=== PATIENT | female | born 1970 | race Caucasian/White ===

== ENCOUNTER 2018-02-10 15:38 | Outpatient (CLI) | payer OTHER ==
--- NOTE | 2018-02-11 13:26 | Mammography Report ---
DIGITAL SCREENING MAMMOGRAM: 02/10/2018 CLINICAL INDICATION: A 47-year-old with history of late childbearing for screening. COMPARISON: 03/2015, 01/2014. TECHNIQUE: Routine CC and MLO projections as well as bilateral implant displaced views were obtained of the breasts. FINDINGS: The breasts demonstrate heterogeneously dense fibroglandular parenchyma bilaterally. Coarse, typically benign calcifications are present. Bilateral subpectoral silicone implants are stable. No suspicious masses, clustered microcalcifications, or regions of architectural distortion are identified. IMPRESSION: BENIGN FINDINGS. RECOMMENDATION: Routine annual screening unless otherwise clinically indicated. BI-RADS CATEGORY 2 - BENIGN FINDINGS. STANDARD QUALIFYING STATEMENTS: 1. This examination was reviewed with the aid of Computer-Aided Detection (CAD). 2. A negative or benign imaging report should not delay biopsy if clinically suspicious findings are present. Consider surgical consultation if warranted. More than 5% of cancers are not identified by imaging. 3. Dense breasts may obscure an underlying neoplasm. TD: 02/11/2018 13:18
== END 2018-02-10 15:39 | disposition home or self-care (01) ==
LOC: DI 15:38
PROVIDERS: ATTEND Physician Assistant Medical
DX: Z12.31 Encounter for screening mammogram for malignant neoplasm of breast (principal)
CPT/HCPCS: 77067

== ENCOUNTER 2018-04-07 08:00 | Outpatient (CLI) | payer OTHER ==
[2018-04-07 17:53] LABS: BILIRUBIN,URINE NEGATIVE (NEGATIVE); GLUCOSE, URINE (UA) NEGATIVE (NEGATIVE); KETONES,URINE (UA) TRACE mg/dL (NEGATIVE); LEUKOCYTE ESTERASE, URINE NEGATIVE (NEGATIVE); NITRITE,URINE NEGATIVE (NEGATIVE); OCCULT BLOOD,URINE NEGATIVE (NEGATIVE); PROTEIN,URINE NEGATIVE (NEGATIVE); UROBILINOGEN,URINE 0.2 (NORMAL) E.U./dL (NORMAL)
[2018-04-07 17:54] LABS: CLARITY,URINE CLEAR (CLEAR)
[2018-04-07 17:55] LABS: BASOPHILS % (AUTO) 0.5 %; EOSINOPHILS # (AUTO) 0.1 10^3/uL (0.0-0.7); EOSINOPHILS % (AUTO) 1.1 %; HGB - HEMOGLOBIN 14.5 g/dL (12.0-16.0); LYMPHOCYTES # (AUTO) 1.8 10^3/uL (1.5-3.5); LYMPHOCYTES % (AUTO) 26.9 %; MEAN CORPUSCULAR HEMOGLOBIN 30.8 pg (27.0-31.0); MEAN CORPUSCULAR HGB CONC 33.2 g/dL (32.0-36.0); MEAN CORPUSCULAR VOLUME 92.5 fL (81.0-99.0); MONOCYTES # (AUTO) 0.3 10^3/uL (0.0-1.0); MONOCYTES % (AUTO) 3.8 %; NEUTROPHILS # (AUTO) 4.6 10^3/uL (1.5-6.6); NEUTROPHILS % (AUTO) 67.7 %; PLT - PLATELET COUNT 262 10^3/uL (130-450); RED CELL DISTRIBUTION WIDTH 12.2 % (12.0-15.0); WHITE BLOOD COUNT 6.7 x10^3/uL (4.8-10.8)
[2018-04-07 18:07] LABS: ALBUMIN 4.6 g/dL (3.2-5.5); ALBUMIN/GLOBULIN RATIO 1.5 (1.0-2.2); ALKALINE PHOSPHATASE 67 IU/L (42-121); ALT ALANINE AMINOTRANSFERASE 16 IU/L (10-60); AST ASPARTATE AMINOTRANSFERASE 18 IU/L (10-42); BILIRUBIN,TOTAL 0.6 mg/dL (0.2-1.0); BUN - BLOOD UREA NITROGEN 10 mg/dL (6-20); CALCIUM 9.2 mg/dL (8.5-10.3); CARBON DIOXIDE - CO2 25 mmol/L (21-32); CHLORIDE 100 mmol/L (101-111); CREATININE 0.7 mg/dL (0.4-1.0); GFR - MDRD 90 (>89); GLUCOSE 108 mg/dL (70-100); HCG,QUALITATIVE BLOOD NEGATIVE; SODIUM 134 mmol/L (135-145); TOTAL PROTEIN 7.7 g/dL (6.7-8.2)
[2018-04-07 18:34] LABS: CRP - C-REACTIVE PROTEIN < 1.0 mg/dL (0-1.0)
== END 2018-04-07 08:01 ==
LOC: LAB.R 08:00
PROVIDERS: ATTEND Physician Assistant Medical
DX: R10.32 Left lower quadrant pain (principal)
CPT/HCPCS: 80053; 81001; 81003; 84703; 85025; 85651; 86140; 87086

== ENCOUNTER 2020-08-02 13:00 | Outpatient (CLI) | payer BC ==
--- NOTE | 2020-08-04 11:45 | Mammography Report ---
BILATERAL DIGITAL SCREENING MAMMOGRAM 3D/2D WITH AUGMENTATION: 08/02/2020 CLINICAL: Routine screening. Comparison is made to exams dated: 02/10/2018 mammogram, 03/28/2015 mammogram, and 02/18/2014 mammogram - [facility]. The tissue of both breasts is heterogeneously dense. This may lower the sensitivity of mammography. There is a 0.6 cm oval asymmetry with an indistinct margin in the left breast anterior depth inferior region seen on the mediolateral oblique view only 1.6 cm from the nipple. No other significant masses, calcifications, or other findings are seen in either breast. IMPRESSION: INCOMPLETE: NEEDS ADDITIONAL IMAGING EVALUATION The 0.6 cm oval asymmetry in the left breast is indeterminate. Additional views with possible ultras ound are recommended. This exam was interpreted at Station ID: [id number]. NOTE: For mammograms, a report in lay terms will be sent to the patient. Approximately 15% of breast malignancies will not be visualized mammographically. In the management of a palpable breast mass, a negative mammogram must not discourage biopsy of a clinically suspicious lesion. Electronically Signed By: Darshan Marinelli M.D., jr/halina:08/03/2020 13:30:16 ACR BI-RADS Category 0: Incomplete 3340F PARENCHYMAL PATTERN: (D) - The breast(s) demonstrate(s) heterogeneously dense fibroglandular sapna gary. BI-RADS CATEGORY: (0) - 0 Mammo and [place] [id number] Immediate follow-up LATERALITY: (B)
== END 2020-08-02 13:01 | disposition home or self-care (01) ==
LOC: DI.N 13:00
DX: Z12.31 Encounter for screening mammogram for malignant neoplasm of breast (principal); R92.8 Other abnormal and inconclusive findings on diagnostic imaging of breast
CPT/HCPCS: 77063; 77067

== ENCOUNTER 2020-09-13 10:35 | Outpatient (CLI) | payer BC ==
--- NOTE | 2020-09-14 11:45 | Ultrasound Report ---
LIMITED ULTRASOUND OF LEFT BREAST: 09/13/2020 CLINICAL: Patient returns today to evaluate an asymmetry in left breast. Comparison is made to exams dated: 09/13/2020 mammogram, 08/02/2020 mammogram, 02/10/2018 mammogram, 03/28/2015 mammogram, and 02/18/2014 mammogram - [facility]. Real-time ultrasound of the left breast 1-5 o'clock region was performed. Powers scale images of the real-time examination were reviewed. No significant abnormalities were seen sonographically in the left breast. Specifically, no finding to correspond to the patient's screening mammographic abnormality. IMPRESSION: PROBABLY BENIGN There is no sonographic correlate to the patient's screening mammography abnormality and no evidence of malignancy. A follow-up left mammogram in 6 months is recommended to demonstrate stability. Findings and recommendations were conveyed to the patient at time of exam. This exam was interpreted at Station ID: [id number]. Electronically Signed By: Suzy jacques/:09/13/2020 12:12:08 Ultrasound BI-RADS: 3 Probably benign BI-RADS CATEGORY: (3) - 3 Mammogram [id number] 6 month follow-up LATERALITY: (L)
--- NOTE | 2020-09-14 11:45 | Mammography Report ---
UNILATERAL LEFT DIGITAL DIAGNOSTIC MAMMOGRAM 3D/2D: 09/13/2020 CLINICAL: Patient returns today to evaluate a focal asymmetry in the left breast. Comparison is made to exams dated: 08/02/2020 mammogram, 02/10/2018 mammogram, 03/28/2015 mammogram, an d 02/18/2014 mammogram - . The tissue of left breast is heterogeneously d ense. This may lower the sensitivity of mammography. There is an oval low density asymmetry with a circumscribed margin in the left breast anterior depth central to the nipple seen on the mediolateral oblique view only. This is seen in additional views a nd localizes slightly lateral to the nipple. No other significant masses or calcifications are seen in the breast. IMPRESSION: INCOMPLETE: NEEDS ADDITIONAL IMAGING EVALUATION The oval low density asymmetry in the left breast is indeterminate. An ultrasound is recommended. This was performed immediately following this exam. This exam was interpreted at Station ID: [id number]. NOTE: For mammograms, a report in lay terms will be sent to the patient. Approximately 15% of breast malignancies will not be visualized mammographically. In the management of a palpable breast mass, a negative mammogram must not discourage biopsy of a clinically suspicious lesion. Electronically Signed By: Suzy jacques/:09/13/2020 11:40:32 ACR BI-RADS Category 0: Incomplete 3340F PARENCHYMAL PATTERN: (D) - The breast(s) demonstrate(s) heterogeneously dense fibroglandular sapna gary. BI-RADS CATEGORY: (0) - 0 Ultrasound [id number] Immediate follow-up LATERALITY: (B)
== END 2020-09-13 10:36 | disposition home or self-care (01) ==
LOC: DI 10:35
PROVIDERS: ATTEND Physician Assistant
DX: R92.8 Other abnormal and inconclusive findings on diagnostic imaging of breast (principal); N64.89 Other specified disorders of breast

== ENCOUNTER 2021-08-30 12:44 | Outpatient (CLI) | payer BC ==
--- NOTE | 2021-08-31 11:30 | Mammography Report ---
BILATERAL DIGITAL DIAGNOSTIC MAMMOGRAM 3D/2D: 08/30/2021 CLINICAL: Patient returns for a 6 month follow up of the left breast, due for bilateral exam. Comparison is made to exams dated: 09/13/2020 ultrasound, 09/13/2020 mammogram, 08/02/2020 mammogram , 02/10/2018 mammogram, 03/28/2015 mammogram, and 02/18/2014 mammogram - [facility]. T he tissue of both breasts is heterogeneously dense. This may lower the sensitivity of mammography. The previous oval low density asymmetry in the left breast anterior depth central to the nipple seen on the mediolateral oblique view only is no longer seen. No other significant masses, calcifications, or other findings are seen in either breast. Bilateral implants are intact. IMPRESSION: BENIGN Resolution of previously seen left breast screening mammography abnormality. This was probably overla pping glandular tissue, and there had been no sonographic correlate. There is no mammographic evidence of malignancy. A 1 year screening mammogram is recommended. Findings and recommendations were conveyed to the patient at time of exam. This exam was interpreted at Station ID: [id number]. NOTE: For mammograms, a report in lay terms will be sent to the patient. Approximately 15% of breast malignancies will not be visualized mammographically. In the management of a palpable breast mass, a negative mammogram must not discourage biopsy of a clinically suspicious lesion. Electronically Signed By: Suzy jacques/:08/30/2021 13:40:20 ACR BI-RADS Category 2: Benign Finding(s) 3342F PARENCHYMAL PATTERN: (D) - The breast(s) demonstrate(s) heterogeneously dense fibroglandular parsyeda gary. BI-RADS CATEGORY: (2) - 2 RECOMMENDATION: (ANNUAL) - Recommend routine annual screening mammography. [id number] 1 year screening LATERALITY: (B)
== END 2021-08-30 12:45 | disposition home or self-care (01) ==
LOC: DI 12:44
PROVIDERS: ATTEND Nurse Practitioner Family
DX: R92.8 Other abnormal and inconclusive findings on diagnostic imaging of breast (principal)

== ENCOUNTER 2021-11-13 11:26 | Outpatient (CLI) | payer BC ==
--- NOTE | 2021-11-13 12:24 | XRAY Report ---
PROCEDURE: Chest 2 View X-Ray INDICATIONS: POST COVID-19 INFECTION TECHNIQUE: 2 view(s) of the chest. COMPARISON: None. FINDINGS: Surgical changes and devices: None. Lungs and pleura: No pleural effusions or pneumothorax. Lungs are clear. Mediastinum: Mediastinal contours are normal. Heart size is normal. Bones and chest wall: No suspicious bony abnormalities. Soft tissues appear unremarkable. IMPRESSION: No acute cardiopulmonary process demonstrated radiographically. Reviewed by: Darshan Marinelli MD on 11/13/2021 12:22 PM PST Approved by: Darshan Marinelli MD on 11/13/2021 12:22 PM PST Station ID: [id number]
== END 2021-11-13 11:27 | disposition home or self-care (01) ==
LOC: DI.N 11:26
PROVIDERS: ATTEND Physician Assistant
DX: U09.9 Post COVID-19 condition, unspecified (principal)

== ENCOUNTER 2022-02-15 16:02 | Outpatient (CLI) | payer BC ==
--- NOTE | 2022-02-15 18:12 | Ultrasound Report ---
PROCEDURE: Pelvic w/Transvaginal INDICATIONS: HIST OF OVARIAN CYST TECHNIQUE: Real-time scanning was performed of the pelvic organs, with image documentation. Additional endovagi nal scanning was necessary due to incomplete visualization of the adnexal and endometrial structures by transabdominal scanning. COMPARISON: 06/13/14 FINDINGS: Limited scanning through the kidneys shows no hydronephrosis. No pathologic free abdominal or pelvic fluid. Uterus: Uterus is normal in size at 5.3 x 5.1 x 6.7 cm. The endometrium measures 9 mm in combined t hickness. The uterus demonstrates a heterogeneous appearance, with a 7 mm right anterior intramural fibroid noted. Nabothian cysts are incidentally noted. Ovaries: The right ovary measures 3.5 x 1.4 x 1.9 cm, with a calculated volume of 4.7 cc and the lef t ovary measures 3.7 x 2.4 x 2.5 cm, with a calculated volume of 11.5 cc. No significant ovarian abn ormalities are seen, although there is a 2 cm left ovarian cyst seen.. There are less than 12 follic les seen on each side. No adnexal masses are seen. Other: No free pelvic fluid. IMPRESSION: A 2 cm left ovarian cyst can be seen, which is considered to be within physiologic limit s. Reviewed by: Derick Henson MD on 02/15/2022 5:11 PM TYRON Approved by: Derick Henson MD on 02/15/2022 5:11 PM T[place]ON Station ID: [id number]
== END 2022-02-15 16:03 | disposition home or self-care (01) ==
LOC: DI 16:02
PROVIDERS: ATTEND Physician Assistant Medical
DX: N83.202 Unspecified ovarian cyst, left side (principal)

== ENCOUNTER 2022-10-11 14:32 | Outpatient (CLI) | payer OTHER, BC ==
--- NOTE | 2022-10-11 15:07 | SLEEP CARE CONSULTATION ---
Information from patient questionnaire entered by bAigail Hinojosa. I have reviewed and concur with the information entered by Abigail Hinojosa. This document represents the service I personally performed and the decisions made by me, Ramona Bullock ARNP. History of Present Illness Service Date and Time: 10/11/2022 1432 Reason for Visit: New patient Chief Complaint: reports: Unrefreshed sleep, Snoring, Excessive daytime sleepiness, Observed pauses in breathing, Fatigue, Frequent awakenings at night Date of Onset: 10+YRS Usual bedtime: 10PM -12AM Time it takes to fall asleep: QUICKLY Snores at night: Yes Observed to quit breathing while asleep: Yes Sleeps alone due to snoring: Yes (sometimes) Number of times waking at night: 2-4 Reasons for waking at night: reports: Snoring (rare occasion; tells her she wakes herself with snoring but she does not remember), Other (UNKNOWN REASONS). denies: Choking, Gasping for air Toss, Turn, or Twitch while sleeping: No Recalls having dreams: Yes Usually gets out of bed at: 7AM Feels refreshed in the morning: No Morning headache: Yes (1 time a wk; RESOLVES LATE AFTERNOON EVENING ) Sleepy or fatigued during the day: Yes Ever fallen asleep while driving: No Takes day naps: No Dreams during day naps: No Prior sleep studies: Yes Year and Where: [employer] Additional HPI information: I had the pleasure of seeing RAYMON SALDANA today regarding the possibility of her having a sleep disorder. Her current complaints are excessive daytime sleepiness, fatigue frequent night awakenings, observed pauses in breathing, snoring and unrefreshed sleep. She states after her first child was born 18 years ago she started snoring. She states her tells her that she is holding her breath and waking herself up multiple times a night. She is having times that she will wake up and not be able to fall back to sleep. She is waking up tired and is tired all the time during the day. She states she had a sleep study 10 years ago but was not diagnosed with sleep apnea. She saw a specialist who recommended a surgery but she did not want to do it at that time. She states the snoring is worse and she is tired all the time. She is currently taking Trazadone to help her relax and go to sleep but she does not feel it is working. - Parasomnia Symptoms Ever been unable to move upon waking from sleep: No Walks in sleep: No Talks in sleep: No Ever acted out dreams in sleep: No Ever felt weak in the knees when startled or emotional: No Bothered by creepy, crawly, restless sensations in legs: No Problems with memory or concentration: Yes (hard to stay focused when really tired) Subjective Initial [place] Sleepiness Scale score: 13 (10/11/22) Past Medical History Past Medical History: reports: Claustrophobia Social History The patient's occupation is a [employer] Patient is and lives in [place]. Have you smoked in the past 12 months: No Alcohol use: Yes Alcohol amount and frequency: ONE OR LESS A WEEK Caffeine use: Yes Caffeine amount and frequency: EVERYDAY Family History Family history of sleep disordered breathing: Yes Family Hx Sleep Apnea: Mother: Snoring, Sleep apnea - Untreated, Father: Snoring, Sleep apnea - Untreated Allergies and Home Medications Known drug allergies: No Drug allergies reviewed: Yes (NKDA) Home medication list reviewed: Yes Allergy and home medication list: Medications: Trazadone, prn sleep OTC Melatonin Review of Systems Weight gain over past 5 years: 5 Weight loss over past 5 years: 5 Cardiovascular: denies: high blood pressure Respiratory: reports: shortness of breath Gastrointestinal: denies: heartburn Neurological: reports: headaches Psychiatric: reports: anxiety, claustrophobia. denies: depression Ear/Nose/Throat: reports: wisdom teeth removed. denies: tonsillectomy Endocrine: reports: sluggishness Physical Exam Vital signs obtained and entered by: ABIGAIL Escobar MA Blood Pressure: 98/58 (LEFT ARM) Cuff size: regular Heart Rate: 89 O2 Saturation: 97 Height: 5 ft 6 in Weight: 136 lb Body Mass Index: 21.9 BMI Classification: Normal Neck circumference: 12.5 Mouth and throat: narrow oropharynx Soft palate: long Hard palate: normal Uvula: normal Uvula visualization: 25% Mallampati Class III Tongue: enlarged in size with teeth castro on lateral edges Tonsils: small Neck: normal w/o lymphadenopathy or thyromegaly Heart: regular rate and rhythm Impression and Plan 1. Suspected Obstructive Sleep Apnea-Hypopnea Syndrome, as suggested by a history of loud and irregular snoring, observed cessation of breath while asleep, morning headache, frequent awakening during the night, unrefreshed sleep, cognitive impairment, and excessive daytime sleepiness. Narrow oropharynx and obesity are common predisposing factors for obstructive sleep apnea-hypopnea syndrome. I recommend proceeding to polysomnography to confirm the diagnosis and to assess severity. If the patient has significant sleep disordered breathing, a manual CPAP titration study will also be performed to find the optimal treatment pressure. I informed the patient of what the sleep studies involve and after some discussion, obtained agreement to proceed. The pathophysiology of obstructive sleep apnea-hypopnea syndrome was discussed with the patient and health risks of cardiovascular and cerebrovascular disease if not treated. Risks of drowsy driving discussed in detail and patient advised to avoid long distance driving and to snout puller at the first sign of drowsiness. Patient agreed to plan. * Schedule polysomnography * Avoid long distance driving or driving when feeling sleepy. * Avoid alcohol, sedative and muscle relaxant around bedtime. * Review instructions provided by trained office staff on how to prepare for the sleep study. * Return for follow-up after sleep study completed. Visit Type: In Office Time Spent with Patient (minutes): 24 Provider Statement: I spent 100% of the Face to Face Visit with the patient with greater than 50% spent counseling the patient and coordination of care.
[2022-10-11 15:15] VITALS: BP 98/58
== END 2022-10-11 14:33 | disposition home or self-care (01) ==
LOC: SC 14:32
PROVIDERS: ATTEND Nurse Practitioner Family
DX: G47.10 Hypersomnia, unspecified (principal); R53.83 Other fatigue; G47.8 Other sleep disorders; R51.9 Headache, unspecified; R06.83 Snoring; R06.81 Apnea, not elsewhere classified
CPT/HCPCS: 99202; 99212

== ENCOUNTER 2022-11-03 20:01 | Emergency (ER) | payer BC, OTHER ==
[2022-11-03] MEDS ORDERED: lidocaine 1% 20 ML MDV SUBQ STA (20:51)
[2022-11-03] MEDS ORDERED: TETANUS/DIPHTHERIA/PERTUSSIS 0.5 ML SYRINGE IM ONE (20:52)
[2022-11-03] MEDS ORDERED: BACITRACIN ZINC OINT 1 PACKET TOP STA (21:28)
--- NOTE | 2022-11-03 21:34 | ED Physician Documentation ---
PD HPI HEENT - Stated complaint Stated Complaint: FALL/FACE LAC - Chief complaint Chief Complaint: Heent - History obtained from History obtained from: Patient - Additional information Additional information: The patient comes to the emergency department chief complaint of facial injury after tripping and falling in the driveway this evening. The patient had been drinking little bit of alcohol [employer] and when she tripped and fell, was able to catch herself somewhat with her hands but mostly hit her face. She states she was not rendered unconscious and immediately got up off the ground. She was not injured in any other way. She states she has some abrasions and cuts on her cheek and her lip and that is why she is here. She is not sure when her last tetanus shot was, but thinks it's been at least 10 years. No other injuries or complaints. PD PAST MEDICAL HISTORY - Past Medical History Cardiovascular: None Respiratory: None Endocrine/Autoimmune: None - Past Surgical History Past Surgical History: Yes - Present Medications Home Medications: Ambulatory Orders Medication Instructions Recorded Confirmed Hydrocodone/Acetaminophen [[place] 1 each PO Q6H PRN #15 tablet 06/08/15 10/11/22 5-325 Tablet] Ibuprofen 600 mg PO TID #20 tablet 06/08/15 10/11/22 Multivitamin See Rx Instructions .ROUTE .COMPLEX 10/11/22 10/11/22 traZODone [Desyrel] See Rx Instructions .ROUTE .COMPLEX 10/11/22 10/11/22 - Allergies Allergies/Adverse Reactions: Allergies Allergy/AdvReac Type Severity Reaction Status Date / Time No Known Drug Allergies Allergy Verified 11/03/22 20:10 - Social History Does the pt smoke?: No Smoking Status: Never smoker Does the pt drink ETOH?: Yes Does the pt have substance abuse?: No PD ED PE NORMAL - Vitals Vital signs reviewed: Yes - General General: Alert and oriented X 3, No acute distress, Well developed/nourished - HEENT HEENT: PERRL, EOMI, Moist mucous membranes, Other (Superficial abrasion over right maxillary area with 2.5 cm vertical laceration over lateral maxillary area, not involving lower eyelid. No bony deformity. 1 cm curved laceration left upper lip crossing vermilion border. Not through and through. No fracture or laxity of teeth) - Cardiac Cardiac: RRR, No murmur - Respiratory Respiratory: Clear bilaterally - Abdomen Abdomen: Normal bowel sounds, Soft, Non tender, Non distended - Derm Derm: Warm and dry - Extremities Extremities: No deformity - Neuro Neuro: Alert and oriented X 3 - Psych Psych: Normal mood, Normal affect Results - Vitals Vitals: Vital Signs - 24 hr 11/03/22 11/03/22 11/03/22 20:05 20:34 21:36 Temperature 36.9 C 37.1 C Heart Rate 93 81 86 Respiratory 23 18 18 Rate Blood Pressure 126/67 110/99 H 105/64 O2 Saturation 99 97 98 Oxygen O2 Source Room air Procedures - Laceration (location) Right maxilla Length in cm: 2.5 Wound type: Linear (Vertical), Into subcut fat, Contaminated (Gravelly foreign bodies noted in wound.) Neurovascular status: Sensory intact, Motor intact, Vascular intact Anesthesia: Lidocaine 1% Wound preparation: Hibiclens, Irrigated copiously NS, Wound explored, To the base, FB identified, FB removed (2 small pieces of gravel removed.) Skin layer closure: Nylon, Interrupted, Size #-0 - enter number (6.0), Sutures - enter # (For) Other: Patient tolerated well, No complications, Dressing applied, Tetanus booster given Left upper lip Length in cm: 1 Wound type: Curved, Into subcut fat, Clean, Involvement of free margins of vermilion border Neurovascular status: Sensory intact, Motor intact, Vascular intact Anesthesia: Lidocaine 1% Wound preparation: Hibiclens, Irrigated copiously NS, Wound explored, To the base Skin layer closure: Nylon, Interrupted, Size #-0 - enter number (6.0), Sutures - enter # (Tube) Other: Patient tolerated well, No complications, Neurovascular intact, Tetanus booster given PD Medical Decision Making - ED course ED course: The patient's lacerations were repaired with a total of 6 sutures, 4 in the maxillary laceration and 2 in the lip laceration, with very good results. We have discussed wound care at home, and the timeline for wound check and likely suture removal, which should be 5 days. We have discussed the usual indications for return. Patient's tetanus has been updated. Departure - Departure Disposition: 01 Home, Self Care Clinical Impression: Facial laceration Qualifiers: Encounter type: initial encounter Qualified Code(s): S01.81XA - Laceration without foreign body of other part of head, initial encounter Condition: Stable Instructions: ED Laceration Facial Sutr Tape, ED Immunization Tetanus and FU Comments: The laceration on your cheek was repaired with 4 sutures and the laceration on your lip was repaired with 2. All of the sutures are synthetic, and will need to be removed. You should have your wound checked in 5 days to determine whether the wounds are ready for suture removal. In the meantime, you should keep the wounds generally clean and dry. You may let water and soap run over the wounds but please do not rub, scrub, or immerse the wounds until sutures are removed. You may apply vitamin E oil 2 or 3 times a day to help encourage minimal scar formation. If you wish to use an antibiotic ointment, you may apply this a couple hours apart from the vitamin E. Your tetanus has been updated today, and you will need it updated in about 10 years. Forms: Activity restrictions Discharge Date/Time: 11/03/22 21:42
[2022-11-03 21:42] VITALS: BP 105/64
== END 2022-11-03 21:42 | disposition home or self-care (01) ==
LOC: ED 20:01
DX: S01.511A Laceration without foreign body of lip, initial encounter (principal); W01.0XXA Fall on same level from slipping, tripping and stumbling without subsequent striking against object, initial encounter; Z23 Encounter for immunization; Z71.85 Encounter for immunization safety counseling
CPT/HCPCS: 12013; 90471; 90715; 99283; A9270

== ENCOUNTER 2022-11-27 14:58 | Outpatient (CLI) | payer BC, OTHER | END 2022-11-27 14:59 | disposition home or self-care (01) | LOC: SC 14:58 | PROVIDERS: ATTEND Nurse Practitioner Family | DX: G47.33 Obstructive sleep apnea (adult) (pediatric) (principal); R09.02 Hypoxemia | CPT/HCPCS: 95806 ==

== ENCOUNTER 2022-12-10 16:08 | Outpatient (CLI) | payer OTHER ==
--- NOTE | 2022-12-10 09:51 | SLEEP CARE CONSULTATION ---
Information from patient questionnaire entered by Abigail Hinojosa. I have reviewed and concur with the information entered by Abigail Hinojosa. This document represents the service I personally performed and the decisions made by , Ramona Bullock ARNP. History of Present Illness Service Date and Time: 12/10/2022919 Initial [place] Sleepiness Scale score: 13 (10/11/22) Current [place] Sleepiness Scale score: 12 (12/10/22) Additional HPI information: RAYMON SALDANA returns via video telehealth visit for follow up and results of the recently performed home sleep study. I explained the pathophysiology behind obstructive sleep apnea. We then spent quite a bit of time discussing different treatment options. For mild obstructive sleep apnea, surgery and oral appliance are alternatives to nasal CPAP therapy but in moderate or severe cases, nasal CPAP is the most effective and reliable treatment. I reviewed the impact of weight changes on sleep apnea. I explained how CPAP machine works and what to expect when using the machine. Mona flower was told previously by a ENT specialist about surgery to fix her sleep apnea and she would like to have this done instead of trying other therapies. Patient was cautioned about risks of drowsy driving until sleepiness symptoms resolve. Sleep Study - Results Type of Sleep Study: Home sleep study (COMPLETED 11/27/22) Prior sleep studies: Yes Year and Where: [facility]/Home Sleep Study results: Physician Impression: The quality of the fair due to unreliable pulse oximetry signal. The length of the study is adequate (> 240 minutes). Please also see the tabulated and graphic data. 1. Obstructive Sleep Apnea-Hypopnea (ICD-10 G47.33), mild, with an AHI of 7.3/hr and carlos SaO2 of 85%. During the study, the patient had 28 apneas (28 obstructive, 0 central, 0 mixed) and 22 hypopneas. The longest episode lasted 57.5 seconds. The patient did not sleep supine during this study. 2. Hypoxemia (ICD-10 R09.02), mild, with the lowest oxygen saturation of 85 % and 113.9 minutes with SaO2 under 90%. Baseline oxygen saturation was normal (Average oxygen saturation was 93%). Allergies and Home Medications Known drug allergies: No Drug allergies reviewed: Yes Home medication list reviewed: Yes (no changes) Review of Systems Review of systems same as previous: Yes (no changes) Physical Exam Vital signs obtained and entered by: ABIGAIL Escobar MA Height: 5 ft 6 in (PER PT ) Weight: 135 lb (PER PT) Body Mass Index: 21.7 BMI Classification: Normal Impression and Plan 1. Obstructive Sleep Apnea-Hypopnea Syndrome, mild, with lowest oxygen saturation of 85%. Obviously this is the cause of the patients symptoms of unrefreshed sleep, and excessive daytime sleepiness. Patient states many years ago she saw an ENT specialist who told her that her sleep apnea could be treated with a surgical procedure. She states she would like to see an ENT specialist for evaluation for surgery to treat her sleep apnea. Patient was advised to see her primary doctor for a referral to ENT specialist. We may follow-up with her after her surgery is completed and healing time is adequate to reevaluate for sleep apnea. She voiced understanding and agreement with this plan. 2. Hypoxemia, mild, with the lowest oxygen saturation of 85 % and 113.9 minutes with SaO2 under 90%. Her baseline oxygen saturation was normal with an average oxygen saturation of 93%. * Patient going for ENT evalution for possible surgery * The patient is again cautioned about driving until sleepiness completely resolves. * Return after surgery is completed for re-evaluation. Visit Type: Telehealth Video Video Type: Doximity Patient Location: Work Location of Provider: Office Patient agrees and consents to this telehealth visit type: Yes Patient agrees to have their insurance billed: Yes Time Spent with Patient (minutes): 21 Provider Statement: I spent 100% of the Telehealth Video Call with the patient with greater than 50% spent counseling the patient and coordination of care.
== END 2022-12-10 16:09 | disposition home or self-care (01) ==
LOC: SC 16:08
PROVIDERS: ATTEND Nurse Practitioner Family
DX: G47.33 Obstructive sleep apnea (adult) (pediatric) (principal); R09.02 Hypoxemia

== ENCOUNTER 2023-01-08 11:14 | Day surgery (SDC) | payer OTHER ==
[2023-01-08] MEDS ORDERED: LACTATED RINGERS 1,000 ML IV ONE ×2 (11:24→13:55)
[2023-01-08] MEDS ORDERED: PROPOFOL 500 MG/50 ML 500 MG/50 ML VIAL ONE (13:04)
--- NOTE | 2023-01-08 13:15 | ANESTHESIA ---
Pre-Anesthesia VS, & Labs - Diagnosis screening - Procedure colonoscopy Height: 5 ft 6 in Weight (kg): 59.7 kg Body Mass Index: 21.2 BMI Classification: Normal - NPO >8 hours - Is Patient ?: No Home Medications and Allergies Multivitamin See Rx Instructions .ROUTE .COMPLEX 10/11/22 traZODone [Desyrel] See Rx Instructions .ROUTE .COMPLEX 10/11/22 Allergies/Adverse Reactions: Allergies Allergy/AdvReac Type Severity Reaction Status Date / Time No Known Drug Allergies Allergy Verified 11/03/22 20:10 Anes History & Medical History - Anesthetic History Anesthesia Complications: reports: No previous complications Family history of Anesthesia Complications: Denies Family history of Malignant Hyperthermia: Denies - Medical History Cardiovascular: reports: None Pulmonary: reports: None Gastrointestinal: reports: None Urinary: reports: None Musculoskeletal: reports: None Endocrine/Autoimmune: reports: None Skin: reports: None Smoking Status: Never smoker Psychosocial: reports: Alcohol - Surgical History Other Past Surgical History: abdominoplasty, breast implants Exam General: Alert, Oriented x3, Cooperative Dental: Other (upper partial) Mouth Openin Fingerbreadth Neck Mobility: Normal Mallampati classification: I Thyromental Distance: 4-6 cm Respiratory: Lungs clear Cardiovascular: Regular rate Plan Anesthesia Type: Total IV Consent for Procedure(s) Verified and Reviewed: Yes Code Status: Attempt Resuscitation ASA classification: 2-Mild systemic disease Is this case an emergency?: No
[2023-01-08 13:21] LABS: HCG UR QUAL NEGATIVE
[2023-01-08] MEDS ORDERED: MIDAZOLAM 2 MG/2 ML VIAL ONE (13:40)
[2023-01-08 14:22] VITALS: BP 101/55
--- NOTE | 2023-01-08 14:54 | ANESTHESIA POST OP EVALUATION ---
Anesthesia Post Eval - Post Anesthesia Eval Vitals: Last Vital Signs Temp 36.4 C L 01/08/23 14:20 Pulse 71 01/08/23 14:20 Resp 16 01/08/23 14:20 BP 101/55 L 01/08/23 14:20 Pulse Ox 100 01/08/23 14:20 O2 Flow Rate CV Function Including HR & BP: Stable Pain Control: Satisfactory Nausea & Vomiting: Negative Mental Status: Baseline Respiratory Status: Airway Patent Hydration Status: Satisfactory Anesthesia Complications: None
== END 2023-01-08 11:15 | disposition home or self-care (01) ==
LOC: SDS 11:14
PROVIDERS: ATTEND Surgery
DX: Z12.11 Encounter for screening for malignant neoplasm of colon (principal); K64.8 Other hemorrhoids; G47.30 Sleep apnea, unspecified
CPT/HCPCS: 45378; 81025; J7120